=== PATIENT | female | born 1980 | race Caucasian/White ===

== ENCOUNTER 2017-03-11 19:47 | Emergency (ER) | payer BC, MEDICARE, OTHER ==
--- NOTE | 2017-03-11 19:58 | EDM.PDOC ---
ED HPI GENERAL MEDICAL PROBLEM - General Chief Complaint: Lower Extremity Injury/Pain Stated Complaint: Left Ankle Injury Time Seen by Provider: 03/11/17 19:50 Source of Information: Reports: Patient, Family, RN, RN Notes Reviewed History Limitations: Reports: No Limitations - History of Present Illness INITIAL COMMENTS - FREE TEXT/NARRATIVE: Patient presents to the ED at [facility] complaining of a left ankle injury. Patient states she was playing was a dog on a leash, when the leash got wrapped around her left ankle. The dog started to run, causing the leash to tighten around the patient's ankle, causing an inversion injury and fall. Patient states she has fracture her left ankle in the past. No previous left ankle surgery. Patient complains of pain around the left lateral malleolus. She states she is unable to move and toes and all of her toes "feel numb." Patient states the pain is sharp and throbbing, radiating up and down the left leg. Patient smells of ETOH. Onset: Today Onset Date: 03/11/17 Onset Time: 18:00 Duration: Constant, Getting Worse Location: Reports: Lower Extremity, Left (Left Ankle) Quality: Reports: Sharp, Throbbing Severity: Severe Improves with: Reports: None Worsens with: Reports: Movement Context: Reports: Trauma. 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: Other (see below) (none) Left ankle Pain Score (Numeric/FACES): 10 - Related Data Allergies Allergy/AdvReac Type Severity Reaction Status Date / Time azithromycin [From Zithromax] Allergy Rash Verified 12/24/14 20:54 clindamycin Allergy Rash Verified 12/24/14 20:54 clindamycin HCl Allergy Rash Verified 12/24/14 20:54 [From Cleocin] clindamycin palmitate HCl Allergy Rash Verified 12/24/14 20:54 [From Cleocin] clindamycin phosphate Allergy Rash Verified 12/24/14 20:54 [From Cleocin] doxycycline Allergy Rash Verified 12/24/14 20:54 latex Allergy Rash Verified 12/24/14 20:54 levofloxacin [From Levaquin] Allergy Rash Verified 12/24/14 20:54 metronidazole [From Flagyl] Allergy Rash Verified 12/24/14 20:54 Metronidazole HCl Allergy Rash Verified 12/24/14 20:54 [From Flagyl] sulfamethoxazole Allergy Rash Verified 12/24/14 20:54 [From Bactrim] trimethoprim [From Bactrim] Allergy Rash Verified 12/24/14 20:54 bee stings Allergy Edema Uncoded 01/21/14 15:40 Home Meds: Home Meds Citalopram [Citalopram Hbr] 40 mg PO DAILY 01/21/14 [History] Cyanocobalamin (Vitamin B-12) [B-12] 1,000 mcg SL DAILY 01/21/14 [History] Estradiol [Estrace] 2 mg PO DAILY 01/21/14 [History] Multivitamin [Multivitamins] 1 cap PO DAILY 01/21/14 [History] Cholecalciferol (Vitamin D3) [Vitamin D3] 2,000 unit PO DAILY 12/24/14 [History] Doxepin HCl [Doxepin] 10 mg PO DAILY 03/11/17 [History] OXcarbazepine [Trileptal] 150 mg PO DAILY 03/11/17 [History] traMADol HCl [Tramadol HCl] 50 mg PO BID 03/11/17 [History] Social & Family History - Tobacco Use Smoking Status *Q: Current Every Day Smoker Years of Tobacco use: 10 Second Hand Smoke Exposure: Yes - Alcohol Use Days Per Week of Alcohol Use: 0 - Recreational Drug Use Recreational Drug Use: No Review of Systems - Review of Systems Review Of Systems: See Below Constitutional: Denies: Chills, Fever, Weakness Respiratory: Denies: Shortness of Breath, Cough Cardiovascular: Denies: Chest Pain, Palpitations Musculoskeletal: Reports: Foot Pain, Joint Pain, Joint Swelling Skin: Reports: No Symptoms Neurological: Reports: Numbness. Denies: Dizziness, Headache, Paresthesia, Tingling Trauma Exam - Physical Exam Exam: See Below Exam Limited By: No Limitations General Appearance: Reports: Alert, No Apparent Distress Head: Reports: Atraumatic, Normocephalic Respiratory Exam: Reports: No Respiratory Distress, Lungs Clear, Normal Breath Sounds Cardiovascular: Reports: Regular Rate, Rhythm Extremities: Pain with Movement (Left ankle; moderate swelling around the left lateral malleolus; CMS intact), Tenderness, Unable to Bear Weight Neurologic: Reports: Alert, Oriented x 3 Skin: Reports: Normal Color, Warm/Dry - [place] Coma Score Best Eye Response ([place]): (4) Open Spontaneously Best Verbal Response ([place]): (5) Oriented Best Motor Response ([place]): (6) Obeys Commands [place] Total: 15 Course - Vital Signs Last Recorded V/S: Last Vital Signs Temp 35.9 C 03/11/17 19:50 Pulse 78 03/11/17 19:50 Resp 20 03/11/17 19:50 BP 121/72 03/11/17 19:50 Pulse Ox 98 03/11/17 19:50 - Orders/Labs/Meds Orders: Active Orders 24 hr Category Date Time Status Ankle Min 3V Lt [CR] Stat Exams 03/11/17 19:53 Taken Meds: Medications Discontinued Medications Generic Name Dose Route Start Last Admin Trade Name Carlos PRN Reason Stop Dose Admin Acetaminophen 1,000 mg 03/11/17 20:29 03/11/17 20:33 Tylenol Extra Strength PO 03/11/17 20:30 1,000 mg ONETIME ONE Administration - Radiology Interpretation Free Text/Narrative:: No acute fracture or dislocation seen on plain film - see scanned report in EMR. Departure - Departure Time of Disposition: 20:16 Disposition: Home, Self-Care 01 Condition: good Clinical Impression: Left ankle sprain Qualifiers: Encounter type: initial encounter Involved ligament of ankle: unspecified ligament Qualified Code(s): S93.402A - Sprain of unspecified ligament of left ankle, initial encounter - Discharge Information Instructions: Ankle Sprain, Elastic Bandage and RICE Referrals: Bridger Chua MD [Primary Care Provider] - Forms: ED Department Discharge Additional Instructions: 1. Stay well hydrated and rest 2. Rest, elevate, and ice left ankle several times a day 3. May alternate Tylenol/Advil as needed 4. Discomfort may persist for the next couple of days; give your ankle a rest 5. See your Primary as symptoms warrant - Problem List Review Problem List Initiated/Reviewed/Updated: Yes - My Orders Last 24 Hours: My Active Orders 03/11/17 19:53 Ankle Min 3V Lt [CR] Stat - Assessment/Plan Last 24 Hours: My Active Orders 03/11/17 19:53 Ankle Min 3V Lt [CR] Stat Plan: [place] website reviewed. Patient recently had a prescription for Tramadol 50mg filled on 02/12/2017. See scanned document in EMR.
[2017-03-11 20:07] VITALS: BP 121/72
[2017-03-11] MEDS ORDERED: Acetaminophen 500 MG Tab PO ONE (20:29)
== END 2017-03-11 20:51 | disposition home or self-care (01) ==
LOC: VM.ED 19:47
DX: S93.402A Sprain of unspecified ligament of left ankle, initial encounter (principal); F17.210 Nicotine dependence, cigarettes, uncomplicated; Z88.1 Allergy status to other antibiotic agents; Z88.2 Allergy status to sulfonamides; Z91.030 Bee allergy status; Z91.040 Latex allergy status; Z79.899 Other long term (current) drug therapy; W22.8XXA Striking against or struck by other objects, initial encounter
CPT/HCPCS: 73610; 99283; A9270

== ENCOUNTER 2019-11-07 17:44 | Emergency (ER) | payer MEDICARE, OTHER ==
[2019-11-07 18:02] VITALS: BP 120/68; PULSE 74
[2019-11-07] MEDS ORDERED: Acetaminophen/HYDROcodone 325-5 MG Tab PO ONE (18:09)
--- NOTE | 2019-11-07 18:16 | EDM.PDOC ---
ED HPI GENERAL MEDICAL PROBLEM - General Chief Complaint: Upper Extremity Injury/Pain Stated Complaint: FELL ON ICE;HURT R ELBOW Time Seen by Provider: 11/07/19 18:00 Source of Information: Reports: Patient History Limitations: Reports: No Limitations - History of Present Illness INITIAL COMMENTS - FREE TEXT/NARRATIVE: Patient presents to ER with complaints of right elbow pain. 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 Hit her elbow on the concrete, head on the frame of the pickling drum operator. No loss of consciousness. Mild headache. No double or blurred vision. No weakness in arms or legs. No nausea or vomiting. Has pain only in her elbow. Increased discomfort with flexion and extension. Onset: Today, Sudden Duration: Minutes:, Constant Location: Reports: Upper Extremity, Right Quality: Reports: Throbbing Severity: Moderate Improves with: Reports: Rest Worsens with: Reports: Movement Associated Symptoms: Denies: Confusion, Nausea/Vomiting, Syncope Right Elbow Pain Score (Numeric/FACES): 6 - Related Data Allergies Allergy/AdvReac Type Severity Reaction Status Date / Time azithromycin [From Zithromax] Allergy Rash Verified 11/07/19 17:57 clindamycin Allergy Rash Verified 11/07/19 17:57 clindamycin HCl Allergy Rash Verified 11/07/19 17:57 [From Cleocin] clindamycin palmitate HCl Allergy Rash Verified 11/07/19 17:57 [From Cleocin] clindamycin phosphate Allergy Rash Verified 11/07/19 17:57 [From Cleocin] doxycycline Allergy Rash Verified 11/07/19 17:57 latex Allergy Rash Verified 11/07/19 17:57 levofloxacin [From Levaquin] Allergy Rash Verified 11/07/19 17:57 metronidazole [From Flagyl] Allergy Rash Verified 11/07/19 17:57 Metronidazole HCl Allergy Rash Verified 11/07/19 17:57 [From Flagyl] sulfamethoxazole Allergy Rash Verified 11/07/19 17:57 [From Bactrim] trimethoprim [From Bactrim] Allergy Rash Verified 11/07/19 17:57 bee stings Allergy Edema Uncoded 01/21/14 15:40 Home Meds: Home Meds Cyanocobalamin (Vitamin B-12) [B-12] 1,000 mcg SL DAILY 01/21/14 [History] Estradiol [Estrace] 2 mg PO DAILY 01/21/14 [History] Multivitamin [Multivitamins] 1 cap PO DAILY 01/21/14 [History] Cholecalciferol (Vitamin D3) [Vitamin D3] 2,000 unit PO DAILY 12/24/14 [History] traMADol HCl [Tramadol HCl] 50 mg PO BID 03/11/17 [History] Escitalopram Oxalate 20 mg PO DAILY 11/07/19 [History] Omeprazole 20 mg PO DAILY 11/07/19 [History] Past Medical History Neurological History: Reports: Migraines, Neuropathy, Peripheral Psychiatric History: Reports: Depression - Past Surgical History GI Surgical History: Reports: Bariatric Procedure Social & Family History - Tobacco Use Smoking Status *Q: Current Every Day Smoker Years of Tobacco use: 20 Packs/Tins Daily: 0.5 - Alcohol Use Days Per Week of Alcohol Use: 1 Number of Drinks Per Day: 1 Total Drinks Per Week: 1 - Recreational Drug Use Recreational Drug Use: No Review of Systems - Review of Systems Review Of Systems: See Below Constitutional: Reports: No Symptoms Eyes: Denies: Blurred Vision, Vision Change Ears: Denies: Dizziness, Tinnitus, Bloody Discharge Nose: Denies: Clots, Epistaxis Mouth/Throat: Reports: No Symptoms Respiratory: Denies: Shortness of Breath, Cough Cardiovascular: Denies: Chest Pain, Syncope GI/Abdominal: Denies: Abdominal Pain, Nausea, Vomiting Genitourinary: Reports: No Symptoms Musculoskeletal: Reports: Arm Pain, Joint Pain Skin: Reports: Bruising Neurological: Reports: No Symptoms ED EXAM, GENERAL - Physical Exam Exam: See Below Exam Limited By: No Limitations General Appearance: Alert, WD/WN, Mild Distress Ears: Normal External Exam, Normal TMs Nose: Normal Inspection, Normal Mucosa, No Blood Throat/Mouth: Normal Inspection, Normal Oropharynx Head: Normocephalic Neck: Normal Inspection, Supple, Non-Tender Respiratory/Chest: No Respiratory Distress, Lungs Clear, Normal Breath Sounds Cardiovascular: Regular Rate, Rhythm Extremities: Joint Swelling, Arm Pain, Limited Range of Motion Neurological: Alert, Oriented Skin Exam: Warm, Dry, Ecchymosis Course - Vital Signs Last Recorded V/S: Last Vital Signs Temp 98 F 11/07/19 17:59 Pulse 74 11/07/19 17:59 Resp 16 11/07/19 17:59 BP 120/68 11/07/19 17:59 Pulse Ox 98 11/07/19 17:59 - Orders/Labs/Meds Meds: Medications Discontinued Medications Generic Name Dose Route Start Last Admin Trade Name Carlos PRN Reason Stop Dose Admin Hydrocodone Bitart/Acetaminophen 1 tab 11/07/19 18:09 11/07/19 18:23 [place] 325-5 Mg PO 11/07/19 18:10 1 tab ONETIME ONE Administration - Re-Assessments/Exams Free Text/Narrative Re-Assessment/Exam: 11/07/19 19:05 Xrays are negative. States pain pill not helping all that much yet. Will place in sling. Departure - Departure Time of Disposition: 19:05 Disposition: Home, Self-Care 01 Condition: Good Clinical Impression: Elbow contusion - Discharge Information *PRESCRIPTION DRUG MONITORING PROGRAM REVIEWED*: No *COPY OF PRESCRIPTION DRUG MONITORING REPORT IN PATIENT EVERARDO: No Forms: ED Department Discharge Additional Instructions: 1. Ice frequently to elbow 2. Keep in sling next 1-2 days as needed 3. [place] 1 tab every 6 hours as needed for pain in addition to usual meds 4. Follow up in 5-7 days if persisting pain as would need to consider MRI Sepsis Event Note - Evaluation Sepsis Screening Result: No Definite Risk - Focused Exam Vital Signs: Vital Signs Temp Pulse Resp BP Pulse Ox 11/07/19 17:59 98 F 74 16 120/68 98 Date Exam was Performed: 11/07/19 Time Exam was Performed: 19:04
--- NOTE | 2019-11-07 19:03 | CR ---
[id number] RAD/RAD Elbow Right 3V Min Exam: RAD Elbow Right 3V Min Indication:fall Comparison: No prior imaging for comparison. Discussion: Osseous spurring on the coronoid process of the ulna. Findings are consistent with degenerative change. Joint spaces are well-preserved. Bones are normal alignment. No fracture or joint effusion. Impression: As above. Miguel Brown MD 11/07/19 [id number] Thank you for allowing us to participate in the care of your patient.
[2019-11-07] MEDS ORDERED: Take Home: Acetaminophen/HYDROcodone 325-5 MG, 5 Tab Pack PO ONE (19:04)
== END 2019-11-07 19:20 | disposition home or self-care (01) ==
LOC: VM.ED 17:44
DX: S50.01XA Contusion of right elbow, initial encounter (principal); R51 Headache; F17.210 Nicotine dependence, cigarettes, uncomplicated; Z88.1 Allergy status to other antibiotic agents; Z91.040 Latex allergy status; Z91.030 Bee allergy status; Z79.899 Other long term (current) drug therapy; W00.0XXA Fall on same level due to ice and snow, initial encounter
CPT/HCPCS: 73080-RT; 99283-25; A9270-GY

== ENCOUNTER 2020-08-05 16:15 | Emergency (ER) | payer OTHER ==
[2020-08-05] MEDS ORDERED: Proparacaine 0.5% Ophth Soln 15 ML Bottle EYERT PRN (16:58)
[2020-08-05] MEDS ORDERED: Fluorescein 1 MG Ophth Strip EYERT ONE (17:00)
[2020-08-05] MEDS ORDERED: prednisoLONE Acetate 1% Ophth Susp 5 ML Bottle EYERT STA (17:21)
[2020-08-05] MEDS ORDERED: Ciprofloxacin 0.3% Ophth Soln 2.5 ML Bottle EYERT ONE (17:21)
[2020-08-05] MEDS ORDERED: Acetaminophen/HYDROcodone 325-5 MG Tab PO ONE (17:27)
[2020-08-05] MEDS ORDERED: Take Home: Acetaminophen/HYDROcodone 325-5 MG, 5 Tab Pack PO ONE (17:27)
[2020-08-05 17:32] VITALS: BP 138/75; PULSE 99
--- NOTE | 2020-08-05 17:32 | EDM.PDOC ---
ED HPI GENERAL MEDICAL PROBLEM - General Stated Complaint: EYE PAIN Time Seen by Provider: 08/05/20 17:15 Source of Information: Reports: Patient History Limitations: Reports: No Limitations - History of Present Illness INITIAL COMMENTS - FREE TEXT/NARRATIVE: Patient comes emergency department today with complaints of right eye pain. This patient went to bed last night with her contacts in and had no symptoms. This morning when she woke up she had severe pain in her right eye. She removed her contacts which was not difficult and they were fully intact this morning. She continued to have increasing pain in the right eye throughout the day. Every time that she opens and closes her eyes she has severe pain. She really does not complain of photophobia just that it hurts when she opens her eyes. She denies any blurry or double vision. She denies any headache that is outside of the norm for her. She has struggled with headaches for the past couple of weeks but this is chronic for her. No weakness dizziness lightheadedness. No paresthesias of the upper or lower extremities. No change in the functionality of her upper or lower extremities. She does not recall scratching her eye dur ing the night. She has had no drainage from her right eye. Right Eye Pain Score (Numeric/FACES): 9 - Related Data Allergies Allergy/AdvReac Type Severity Reaction Status Date / Time azithromycin [From Zithromax] Allergy Rash Verified 08/05/20 16:42 clindamycin Allergy Rash Verified 08/05/20 16:42 clindamycin HCl Allergy Rash Verified 08/05/20 16:42 [From Cleocin] clindamycin palmitate HCl Allergy Rash Verified 08/05/20 16:42 [From Cleocin] clindamycin phosphate Allergy Rash Verified 08/05/20 16:42 [From Cleocin] doxycycline Allergy Rash Verified 08/05/20 16:42 latex Allergy Rash Verified 08/05/20 16:42 levofloxacin [From Levaquin] Allergy Rash Verified 08/05/20 16:42 metronidazole [From Flagyl] Allergy Rash Verified 08/05/20 16:42 Metronidazole HCl Allergy Rash Verified 08/05/20 16:42 [From Flagyl] sulfamethoxazole Allergy Rash Verified 08/05/20 16:42 [From Bactrim] trimethoprim [From Bactrim] Allergy Rash Verified 08/05/20 16:42 bee stings Allergy Edema Uncoded 01/21/14 15:40 Home Meds: Home Meds Cyanocobalamin (Vitamin B-12) [B-12] 1,000 mcg SL DAILY 01/21/14 [History] Estradiol [Estrace] 2 mg PO DAILY 01/21/14 [History] traMADol HCl [Tramadol HCl] 50 mg PO BID PRN 03/11/17 [History] Escitalopram Oxalate 20 mg PO DAILY 11/07/19 [History] Galcanezumab-Gnlm [Emgality] 120 mg SQ Q30D 08/05/20 [History] Pantoprazole Sodium [Protonix] 40 mg PO DAILY 08/05/20 [History] Past Medical History Neurological History: Reports: Migraines, Neuropathy, Peripheral Psychiatric History: Reports: Depression - Past Surgical History GI Surgical History: Reports: Bariatric Procedure ED ROS GENERAL - Review of Systems Review Of Systems: Comprehensive ROS is negative, except as noted in HPI. ED EXAM GENERAL W FULL EYE - Physical Exam Exam: See Below Exam Limited By: No Limitations General Appearance: Alert, WD/WN, No Apparent Distress Eye Exam: Bilateral Eye: EOMI, PERRL Visual Acuity (R) 20/: 30 Visual Acuity (L) 20/: 50 With Correction: Yes Eyelids: Bilateral: Normal Appearance Conjunctiva & Sclera: Right: Injected Cornea Exam: Right: Corneal Ulcer (Under fluorescein stain staining of the right eye at the 9 o'clock position just on the outside of the iris line there is a well-defined very small pinpoint circular ulcer in the cornea. No other foreign material or debris.), Examined with Flourescein Extraocular Movements: Bilateral: Intact Pupils: Normal Accommodation Pupillary Size: Bilateral: 3 mm Pupillary Reaction: Bilateral: Brisk Anterior Chamber: Bilateral: Normal Appearance Ears: Normal External Exam Nose: Normal Inspection Throat/Mouth: Normal Inspection Head: Atraumatic, Normocephalic Neck: Normal Inspection Course - Vital Signs Last Recorded V/S: Last Vital Signs Temp 98.7 F 08/05/20 16:15 Pulse 99 08/05/20 16:15 Resp 16 08/05/20 16:15 BP 138/75 08/05/20 16:15 Pulse Ox 99 08/05/20 16:15 - Orders/Labs/Meds Meds: Medications Discontinued Medications Generic Name Dose Route Start Last Admin Trade Name Freq PRN Reason Stop Dose Admin Hydrocodone Bitart/Acetaminophen 1 tab 08/05/20 17:27 08/05/20 17:42 [place] 325-5 Mg PO 08/05/20 17:28 1 tab ONETIME ONE Administration Hydrocodone Bitart/Acetaminophen 1 packet 08/05/20 17:27 08/05/20 17:42 Take Home: Acetam/Hydrocodon 325-5 Mg, 5 Pack PO 08/05/20 17:28 1 packet ONETIME ONE Administration Ciprofloxacin 1 ml 08/05/20 17:21 08/05/20 17:41 Ciloxan 0.3% Ophth Soln EYERT 08/05/20 17:22 1 drop ONETIME ONE Administration Fluorescein Sodium 1 mg 08/05/20 17:00 08/05/20 17:42 Ful-Ana EYERT 08/05/20 17:01 1 mg ONETIME ONE Administration Ibuprofen 600 mg 08/05/20 17:26 08/05/20 17:50 Motrin PO 08/05/20 17:27 Not Given NOW STA Prednisolone Acetate 1 ml 08/05/20 17:21 08/05/20 17:42 Pred Forte 1% Ophth Susp EYERT 08/05/20 17:22 1 drop NOW STA Administration Proparacaine HCl 1 ml 08/05/20 16:58 08/05/20 17:41 Proparacaine 0.5% Ophth Soln EYERT 2 drop ASDIRECTED PRN Administration Other - Re-Assessments/Exams Free Text/Narrative Re-Assessment/Exam: 08/05/20 18:20 I initially used some proparacaine drops which really did not help much with the pain. Seen staining of the right eye shows a concern for corneal ulcer at the 9 o'clock position just outside the iris that is a pinpoint very well-defined cervical lesion. Morenita is quite injected with clear drainage. The conjunctive is unremarkable. With these concerns I called and spoke with Dr. Havrey HPI ER COURSE findings and concerns were relayed to her verbally over the phone. She does not have concern of iritis at this time as the patient doesn't have any reason to have Iritis. Cipro now q1hr for 24 hours and then every 2 hrs. Start Pred Forte in [address] Harvey is aware of my concern for a corneal ulcer but still advised the Pred forte in 24 hrs. Follow up with opthamology on friday. Reviewed my concerns and the plan of care with the patient and my discussion with the dye and chemical coordinator. She is comfortable with this plan. Ibuprofen 600 mg orally. Hydrocodone 1 tablet orally. Cipro eyedrops as well as Pred forte eyedrops to go home. With clear understanding of not to use the steroids for the first 24 hours. Anything new or worse she is to recheck sooner rather than later. And it is highly important for her not to wear her contacts until this is completely resolved. She is understanding of this and her questions are answered. Departure - Departure Time of Disposition: 17:26 Disposition: Home, Self-Care 01 Clinical Impression: Corneal ulcer Qualifiers: Laterality: right Qualified Code(s): H16.001 - Unspecified corneal ulcer, right eye - Discharge Information Instructions: Corneal Ulcer Referrals: Bridger Chua MD [Primary Care Provider] - Forms: ED Department Discharge Additional Instructions: Do not wear your contacts until healed. Cipro 2 drops to the right eye every 1 hr while awake. Then tomorrow every 2 hrs. Bottle dispensed from the ED. Tomorrow at 6pm start the Pred Forte Drops to the right eye. 2 drops 4 times a day. Bottle dispensed from the ED. Tylenol and or Ibuprofen as needed for pain. Cool wash cloth to your eye as much as possible. If pain not controlled with above. [place] 1 tablet every 6 hrs with food as needed for pain. Caution sedation. Starter pack dispensed from the ED. [facility] Dr[facility] or friday. [phone] call friday to make an appointment. Return to the ED if new or worsening symptoms. Sepsis Event Note (ED) - Focused Exam Vital Signs: Vital Signs Temp Pulse Resp BP Pulse Ox 08/05/20 16:15 98.7 F 99 16 138/75 99
[2020-08-05] MEDS: Ibuprofen 200 MG Tab PO STA ×2 (17:42→17:50)
== END 2020-08-05 17:50 | disposition home or self-care (01) ==
LOC: VM.ED 16:15
DX: H16.001 Unspecified corneal ulcer, right eye (principal); F32.9 Major depressive disorder, single episode, unspecified; G62.9 Polyneuropathy, unspecified; Z79.899 Other long term (current) drug therapy; Z88.1 Allergy status to other antibiotic agents; Z91.040 Latex allergy status; Z88.8 Allergy status to other drugs, medicaments and biological substances; Z88.2 Allergy status to sulfonamides; Z91.030 Bee allergy status
CPT/HCPCS: 99283; A9270-GY

== ENCOUNTER 2023-06-20 21:38 | Emergency (ER) | payer OTHER ==
[2023-06-20 21:54] LABS: APPEARANCE,URINE CLEAR (CLEAR); BILIRUBIN,URINE NEGATIVE (NEGATIVE); COLOR,URINE RED (YELLOW); GLUCOSE,URINE NEGATIVE (NEGATIVE); KETONES,URINE NEGATIVE (NEGATIVE); LEUKOCYTE ESTERASE,URINE MODERATE (NEGATIVE); NITRITE,URINE NEGATIVE (NEGATIVE); OCCULT BLOOD,URINE LARGE (NEGATIVE); PH,URINE 6.5 (5.0-8.0); PROTEIN,URINE >=300 mg/dL (NEGATIVE); UROBILINOGEN,URINE 0.2 EU/dL (0.2)
[2023-06-20] MEDS ORDERED: Phenazopyridine 95 MG Tab PO ONE (21:56)
[2023-06-20] MEDS ORDERED: Acetaminophen/oxyCODONE 325-5 MG Tab PO ONE (22:07)
[2023-06-20 22:09] LABS: BACTERIA,URINE OCCASIONAL /HPF (NOT SEEN)
[2023-06-20] MEDS ORDERED: oxyCODONE 5 MG Tab PO ONE (22:11)
[2023-06-20 22:21] VITALS: BP 118/77; PULSE 70
[2023-06-20 22:25] LABS: BASOPHILS PERCENT AUTO 0.2 % (0.2-1.2); EOSINOPHILS PERCENT AUTO 0.2 % (0.0-4.0); HEMATOCRIT 36.5 % (33.0-47.0); HEMOGLOBIN 12.7 g/dL (12.0-16.0); IMMATURE GRAN ABSOLUTE AUTO 0.01 x10^3/uL (0.00-0.07); LYMPHOCYTES ABSOLUTE AUTO 1.1 x10^3/uL (1.0-4.8); LYMPHOCYTES PERCENT AUTO 9.1 % (25.0-50.0); MEAN CORPUSCULAR HEMOGLOBIN 31.1 pg (26.0-32.0); MEAN CORPUSCULAR HGB CONC 34.8 g/dL (32.0-36.0); MEAN CORPUSCULAR VOLUME 89.2 fL (78.0-93.0); MONOCYTES PERCENT AUTO 7.7 % (2.0-11.0); NEUTROPHILS ABSOLUTE AUTO 10.4 x10^3/uL (1.8-7.7); NEUTROPHILS PERCENT AUTO 82.7 % (50.0-80.0); PLATELET COUNT,PLT 252 x10^3/uL (130-400); RED BLOOD CELL COUNT 4.09 x10^6/uL (4.00-5.50); WHITE BLOOD CELL COUNT,WBC 12.5 x10^3/uL (4.0-10.0)
[2023-06-20 22:45] LABS: A/G RATIO 1.03; ALANINE AMINOTRANSFERASE,ALT 19 U/L (14-59); ALBUMIN 3.6 g/dL (3.4-5.0); ALKALINE PHOSPHATASE 88 U/L (46-116); ANION GAP 14.6 mmol/L (5-15); ASPARTATE AMNIOTRANSFERASE,AST 20 U/L (15-37); BILIRUBIN TOTAL 0.2 mg/dL (0.2-1.0); BLOOD UREA NITROGEN,BUN 8 mg/dL (7-18); C-REACTIVE PROTEIN < 0.05 mg/dL (<=0.30); CALCIUM 8.4 mg/dL (8.5-10.1); CARBON DIOXIDE,CO2 30 mmol/L (21-32); CHLORIDE,CL 103 mmol/L (98-107); CREATININE 0.9 mg/dL (0.55-1.02); ESTIMATED GFR 82 mL/min (>=60); GLUCOSE RANDOM 105 mg/dL (70-99); POTASSIUM,K 3.6 mmol/L (3.5-5.1); PROTEIN TOTAL,TP 7.1 g/dL (6.4-8.2); SODIUM,NA 144 mmol/L (136-145)
[2023-06-20] MEDS ORDERED: Take Home: Acetaminophen/oxyCODONE 325-5 MG, 5 Tab Pack PO ONE (22:51)
[2023-06-20] MEDS ORDERED: Take Home: Amoxicillin/Clavulanate K 875-125 MG Tab, 2 Tab Pack PO ONE (22:51)
[2023-06-20] MEDS ORDERED: Take Home: Phenazopyridine 95 MG Tab, 4 Tab Pack PO ONE (22:51)
== END 2023-06-20 23:07 | disposition home or self-care (01) ==
LOC: VM.ED 21:38
DX: N39.0 Urinary tract infection, site not specified (principal); F17.200 Nicotine dependence, unspecified, uncomplicated; Z88.1 Allergy status to other antibiotic agents; Z91.040 Latex allergy status; Z91.030 Bee allergy status
CPT/HCPCS: 36415; 80053; 81001; 85025; 86140; 87086; 99284; A9270